=== PATIENT | male | born 2000 | race Hispanic/Latino ===

== ENCOUNTER 2024-02-18 14:25 | Inpatient (IN) | payer SELFPAY ==
[2024-02-18] MEDS ORDERED: traMADol HCl 50 MG TAB PO PRN (16:48)
[2024-02-18] MEDS ORDERED: Ondansetron PF 4 MG/2 ML Vial IVP PRN (16:50)
[2024-02-18] MEDS: Acetaminophen 325 MG TAB PO SCH (17:16)
[2024-02-18] MEDS: traMADol HCl 50 MG TAB PO SCH (17:17)
[2024-02-18 17:39] LABS: #Basophils 0.04 10x3/uL (0.0-0.2); %Basophils 0.2 % (0.0-1.0); %Eosinophils 0.3 % (0.0-10.0); %Lymphocytes 9.9 % (21.0-51.0); %Neutrophils 81.6 % (42.0-75.0); Hemoglobin 13.8 g/dL (14.0-18.0); Mean Corpuscular HGB CONC 33.7 g/dL (32.0-36.0); Mean Corpuscular Hemoglobin 29.5 pg (27.0-31.0); Mean Corpuscular Volume 87.6 fL (78.0-98.0); Mean Platelet Volume 12.2 fL (7.4-10.4); Platelet Count 203 10x3/uL (130-400); Red Blood Cell (RBC) Count 4.68 mill/uL (4.70-6.10)
[2024-02-18 18:27] VITALS: BMI 30.5
[2024-02-18] MEDS: Ketorolac Tromethamine 30 MG (1 mL) VIAL IVP SCH ×2 (18:40→23:32)
[2024-02-18] MEDS: HYDROmorphone 0.5 MG/0.5 ML SYRINGE SLOW IVP SCH (18:41)
[2024-02-18] MEDS: Famotidine/PF 20 mg/2ml Vial SLOW IVP SCH (21:23)
[2024-02-18] MEDS: Senokot S 8.6-50 MG TAB PO SCH (21:24)
[2024-02-18] MEDS: Morphine 2 MG/ML VIAL SLOW IVP PRN (21:37)
[2024-02-19 05:15] LABS: #Basophils Less than 0.03 10x3/uL (0.0-0.2); %Basophils 0.2 % (0.0-1.0); %Eosinophils 0.8 % (0.0-10.0); %Lymphocytes 22.9 % (21.0-51.0); %Monocytes 9.9 % (0.0-10.0); %Neutrophils 65.5 % (42.0-75.0); Hematocrit 37.9 % (42.0-52.0); Hemoglobin 12.7 g/dL (14.0-18.0); Mean Corpuscular HGB CONC 33.5 g/dL (32.0-36.0); Mean Corpuscular Hemoglobin 29.5 pg (27.0-31.0); Mean Corpuscular Volume 88.1 fL (78.0-98.0); Mean Platelet Volume 12.5 fL (7.4-10.4); Platelet Count 192 10x3/uL (130-400); RBC Distribution Width 13.1 % (11.5-14.5)
[2024-02-19 05:31] LABS: INR-International Normal Ratio 1.1; PTT 27.5 sec (22.9-36.1)
[2024-02-19 05:44] LABS: Anion Gap 12 mmol/L (10-20); BUN (Urea Nitrogen) 13 mg/dL (8.9-20.6); Calc. Creatinine Clearance 198 mL/min (70-130); Carbon Dioxide 23 mmol/L (22-29); Chloride 105 mmol/L (98-107); Estimated GFR 131; Glucose 106 mg/dL (70-105); Potassium 4.1 mmol/L (3.5-5.1); Sodium 136 mmol/L (136-145)
[2024-02-19] MEDS ORDERED: PROPOFOL 20 ML ONE (06:39)
[2024-02-19] MEDS ORDERED: Lidocaine 1% PF 5 ML VIAL ONE (06:40)
[2024-02-19] MEDS ORDERED: fentaNYL 50 mcg/mL 1 mL Vial ONE (07:34)
[2024-02-19] MEDS ORDERED: CEFAZOLIN 1 GM VIAL ONE (07:53)
[2024-02-19] MEDS ORDERED: Ondansetron PF 4 MG/2 ML Vial ONE (08:06)
[2024-02-19] MEDS ORDERED: Dexamethasone 4 mg/ml Vial ONE (08:06)
[2024-02-19] MEDS ORDERED: HYDROmorphone 2 MG/ML VIAL SLOW IVP PRN (08:53)
[2024-02-19] MEDS ORDERED: Ondansetron HCl/PF 4 MG/2 ML Vial IVP PRN (08:53)
[2024-02-19] MEDS ORDERED: Promethazine HCl 25 MG/ML VIAL IM PRN (08:53)
[2024-02-19] MEDS ORDERED: fentaNYL PF 100 MCG/2 ML SYRINGE ONE (09:17)
[2024-02-19] MEDS: Polyethylene Glycol 3350 17 GM Packet PO SCH (12:15)
[2024-02-19] MEDS: CEFAZOLIN 2 GM in Sodium Chloride 0.9% 100 ML IVPB SCH (14:01)
[2024-02-20 05:20] LABS: #Basophils Less than 0.03 10x3/uL (0.0-0.2); %Basophils 0.2 % (0.0-1.0); %Eosinophils 0.4 % (0.0-10.0); %Neutrophils 69.9 % (42.0-75.0); Hematocrit 32.2 % (42.0-52.0); Hemoglobin 10.7 g/dL (14.0-18.0); Mean Corpuscular HGB CONC 33.2 g/dL (32.0-36.0); Mean Corpuscular Hemoglobin 29.2 pg (27.0-31.0); Mean Platelet Volume 12.7 fL (7.4-10.4); Platelet Count 166 10x3/uL (130-400); RBC Distribution Width 12.8 % (11.5-14.5); Red Blood Cell (RBC) Count 3.66 mill/uL (4.70-6.10)
[2024-02-20] MEDS: Enoxaparin 40 MG (0.4 mL) SYRINGE SC SCH (10:39)
[2024-02-20 12:42] VITALS: BP 115/56; TEMP 97.7
[2024-02-21] MEDS ORDERED: FLU (Fluarix Triv) TS24-25(6MOS UP)/PF 45 MCG/0.5 ML Syringe IM ONE (09:00)
== END 2024-02-20 12:09 | disposition home or self-care (01) | DRG 482 ==
LOC: SURG B 16:44
PROVIDERS: ADMIT Surgery; ATTEND Surgery
PROC: 0QS806Z Reposition Right Femoral Shaft with Intramedullary Internal Fixation Device, Open Approach (ICD-10-PCS; principal; 2024-02-19)
DX: S72.301A Unspecified fracture of shaft of right femur, initial encounter for closed fracture (principal); W20.8XXA Other cause of strike by thrown, projected or falling object, initial encounter; Z79.899 Other long term (current) drug therapy
CPT/HCPCS: 36415; 80048; 85025; 85610; 85730; C1713; J0690; J1100; J1171; J1650; J1885; J2272; J2405; J2704; J3010; J3490